=== PATIENT | female | born 1995 | race Two or more races ===

== ENCOUNTER 2022-06-28 17:29 | Emergency (ER) | payer SELFPAY ==
[2022-06-28 17:56] VITALS: RESP 18; BMI 16.3
[2022-06-28] MEDS ORDERED: SODIUM CHLORIDE IV ONE (18:50)
[2022-06-28] MEDS ORDERED: ACETAMINOPHEN 1000 MG/100 ML BAG IVPB ONE (19:06)
[2022-06-28] MEDS ORDERED: ACETAMINOPHEN INJECTION 100 ML IVPB ONE (19:21)
[2022-06-28 20:10] LABS: EPI CELLS >36 /uL (0-25.1); HYALINE CASTS 1 /uL (0-3.1); PH,URINE 5.5 (5.0-8.0); URINE APPEARANCE CLOUDY; URINE BILIRUBIN 1+ (NEGATIVE); URINE COLOR DK YELLOW; URINE GLUCOSE (UA) NEGATIVE (NEGATIVE); URINE KETONE 2+ (NEGATIVE); URINE LEUK ESTERASE 2+ (NEGATIVE); URINE NITRITE POSITIVE (NEGATIVE); URINE PROTEIN 1+ (NEGATIVE); URINE RBC 19 /uL (0-23.9); URINE WBC 202 /uL (0-25.8)
[2022-06-28 20:26] LABS: VENOUS BASE EXCESS -3.2 mmol/L (-2-2); VENOUS O2 SATURATION 24.4 % (70-80); VENOUS PCO2 40.5 mmHg (38-52); VENOUS PH 7.354 (7.310-7.410)
[2022-06-28 20:31] LABS: BASO % 0.2 % (0-2.0); EOS % 0.4 % (0-4.5); HEMATOCRIT 39.7 % (32.4-45.2); HEMOGLOBIN 13.4 GM/dL (10.7-15.3); LYMPH % 9.2 % (8-40); MCH 30.5 pg (25.7-33.7); MCHC 33.7 g/dl (32.0-36.0); MEAN CELL VOLUME 90.5 fl (80-96); MEAN PLT VOLUME 10.2 fl (7.5-11.1); MONO % 15.2 % (3.8-10.2); PLATELET COUNT 180 10^3/uL (134-434); RBC 4.38 M/mm3 (3.60-5.2); RDW 12.8 % (11.6-15.6); WHITE BLOOD COUNT 8.5 K/mm3 (4.0-10.0)
[2022-06-28 20:38] LABS: INR 1.16 (0.83-1.09); PROTHROMBIN TIME (PATIENT) 13.4 SEC (9.7-13.0)
[2022-06-28 20:40] LABS: ACTIVATED PTT 35.1 SECONDS (25.2-36.5)
[2022-06-28] MEDS ORDERED: CEFTRIAXONE 1,000 MG in DEXTROSE 5%-WATER - 50 ML IVPB ONE (20:41)
[2022-06-28] MEDS ORDERED: CEFTRIAXONE 1 GM/50 ML BAG ONE (20:55)
[2022-06-28 20:57] LABS: CALCIUM 9.2 mg/dL (8.5-10.1)
[2022-06-28 20:58] LABS: BLOOD UREA NITROGEN 15.8 mg/dL (7-18)
[2022-06-28 21:01] VITALS: TEMP 99.4
[2022-06-28 21:02] LABS: BILIRUBIN,TOTAL 0.5 mg/dL (0.2-1)
[2022-06-28 21:19] VITALS: BP 110/62; PULSE 90
== END 2022-06-28 21:35 | disposition home or self-care (01) ==
LOC: JER 17:29
PROC: 3E0333Z Introduction of Anti-inflammatory into Peripheral Vein, Percutaneous Approach (ICD-10-PCS; principal; 2022-06-28)
PROC: 3E03329 Introduction of Other Anti-infective into Peripheral Vein, Percutaneous Approach (ICD-10-PCS; 2022-06-28)
PROC: 3E0337Z Introduction of Electrolytic and Water Balance Substance into Peripheral Vein, Percutaneous Approach (ICD-10-PCS; 2022-06-28)
DX: N30.00 Acute cystitis without hematuria (principal)
CPT/HCPCS: 0241U-QW; 36415; 80053; 81003; 82803; 83605; 84484; 84703; 85025; 85610; 85730; 86850; 86870; 86900; 86901; 86902; 87040; 87086; 93005; 93010; 99284-25